=== PATIENT | female | born 1985 | race Caucasian/White ===

== ENCOUNTER 2023-01-15 18:15 | Inpatient (IN) | payer OTHER, SELFPAY ==
[2023-01-15] VITALS (34 sets, daily range): BP systolic 103–149; BP diastolic 56–106; PULSE 71–100; RESP 15–16; TEMP 36.5–36.8; O2SAT 96–100; BMI 34.2
--- NOTE | ~2023-01-15 | US_ITS ---
EXAMINATION: US OB limited DATE: 01/15/2023 20:21 INDICATION: Vaginal bleeding. Third trimester. TECHNIQUE: Real-time ultrasound of the pelvis was performed. COMPARISON: None. FINDINGS: There is a single fetus in transverse lie. The placenta covers the internal cervical os. heart rate is 170 beats per minute (bpm). The amniotic fluid volume is subjectively normal. IMPRESSION: 1. Single living fetus in transverse lie. 2. Placenta previa. Reviewed, dictated and finalized at location A.
--- NOTE | 2023-01-15 18:15 | LDADM ---
This patient, Cynthia Elizalde, was admitted to Labor/Delivery/Recovery 105 on 01/15/23 at 18:15. Plans for labor, pain management and were discussed with patient. Patient/family oriented to hospital policies and general routines including ID bracelet, bed and alarms, visiting hours, pain management, procedures, bathroom and other care routines, personal items, smoking policy, room service/diet and guest tray routines, infant security routines, and visiting hours. Patient/Family are encouraged to report perceived risks to care and to ask questions if they do not understand what they are told or what they should do. See OBIX for further documentation.
--- NOTE | 2023-01-15 18:15 | PC.NURSE ---
Patient arrived to OB unit with complaint of vaginal bleeding. Patient reports that vaginal bleeding started at 1730 and she has expressed a baseball sized clot, which she brought with her to the hospital. Patient still bleeding upon arrival to OB unit. Patient denies contractions/cramping and reports active movement. Patient denies any loss of fluid.
--- NOTE | 2023-01-15 18:33 | PC.NURSE ---
Dr. Goodman returned page. Dr. Goodman updated on patient assessment including vaginal bleeding. Notified of patient passing baseball sized clot prior to arrival and since has a trickle of blood with 2 pea sized clots upon assessment. Notified that patient abdomen palpates soft without pain and movement palpated and noted audibly and per patient. FHT tachy in 170's, moderate variability noted. Notified of patient vital signs. Orders received from Dr. Goodman.
--- NOTE | 2023-01-15 18:39 | PC.NURSE ---
Dr. Goodman called to give additional orders.
[2023-01-15] MEDS: LACTATED RINGERS 1,000 ML 125 ML IV CONT (18:54)
[2023-01-15 19:00] LABS: Basophils Absolute Auto 0.1 K/mm3 (0.0-0.1); Basophils Percent Auto 0.7 % (0.2-1.2); Eosinophils Absolute Auto 0.2 K/mm3 (0-0.3); Eosinophils Percent Auto 1.7 % (0-4.4); Hematocrit 36.8 % (37.0-47.0); Hemoglobin 12.8 g/dL (12.0-15.0); Immature Granulocyte Absolute 0.33 K/mm3 (0.00-0.031); Immature Granulocyte Percent A 2.3 % (0-0.5); Lymphocytes Absolute Auto 2.63 K/mm3 (0.9-3.2); Lymphocytes Percent Auto 18.5 % (18.3-44.2); Mean Corpuscular HGB Conc 34.8 g/dl (32-36); Mean Corpuscular Hemoglobin 31.8 pg (26-34); Mean Corpuscular Volume 91.5 fl (80-100); Mean Platelet Volume 9.9 fl (7.4-10.4); Monocytes Absolute Auto 0.9 K/mm3 (0.1-0.6); Monocytes Percent Auto 6.5 % (2.6-8.5); Neutrophils Percent Auto 70.3 % (45.5-73.1); Platelet Count Result 255 k/mm3 (150-375); Red Blood Count 4.02 M/mm3 (4.2-5.4); White Blood Count 14.2 K/mm3 (4.5-10.0)
[2023-01-15 19:09] LABS: INR 0.9; Prothrombin Time 12.9 Seconds (11.1-14.7)
[2023-01-15 19:10] LABS: Fibrinogen 529 mg/dl (215-510); Partial Thromboplastin Time 25.3 SECONDS (22.3-36.8)
--- NOTE | 2023-01-15 19:10 | PC.NURSE ---
Called Ultrasound to inquire of ETA for bedside ultrasound.
[2023-01-15 19:13] LABS: Alanine Aminotransferase 40 U/L (6-35); Albumin Level 3.8 g/dL (3.5-5.1); Alkaline Phosphatase 131 U/L (38-126); Anion Gap 7 mmol/L (8-16); Aspartate Amino Transferase 44 U/L (14-36); Bilirubin,Total 0.6 mg/dL (0.2-1.3); Blood Urea Nitrogen 9 mg/dL (7-17); Calcium 9.2 mg/dL (8.4-10.2); Carbon Dioxide 22 mmol/L (22-30); Chloride 106 mmol/L (98-107); Estimated CRCL calculation 143 ml/min; Estimated Glomerular Filt Rate > 60; Glucose 85 mg/dL (65-110); Potassium 3.9 mmol/L (3.4-5.0); Sodium 135 mmol/L (137-145); Uric Acid 3.7 mg/dL (2.5-7.5)
--- NOTE | 2023-01-15 20:05 | PC.NURSE ---
Notified Dr. Goodman that nuclear medicine tech states she is having difficulty fully visualizing placenta r/t position during ultrasound. household appliances service technician states that placenta is low lying and potentially previa, clarified if Dr. Goodman wanted her to attempt an vaginal ultrasound. Dr. Goodman states he would not like a vaginal ultrasound to be performed. Dr. Goodman notified of all lab results at this time. Order received from Dr. Goodman.
--- NOTE | 2023-01-15 20:10 | PC.NURSE ---
Patient updated on plan of care and new orders. Medication education provided. Patient states understanding of new plan of care and orders and denies questions.
--- NOTE | 2023-01-15 20:35 | PC.NURSE ---
Plan of care discussed with patient, patient medication eduction provided prior to starting IV fluids. Patient educated on labs drawn. Patient questions answered.
[2023-01-15] MEDS: DEXTROSE 5%/0.45% SOD CHL 1,000 ML 125 ML IV CONT (20:36)
[2023-01-15] MEDS: BETAMETHASONE SOD PHOS/ACETATE 30 MG/5 ML VIAL 12 MG IM (20:38)
[2023-01-16] VITALS (11 sets, daily range): BP systolic 99–126; BP diastolic 51–78; PULSE 72–86; RESP 15–18; TEMP 36.6–37.1; O2SAT 98–99
[2023-01-16] MEDS: DEXTROSE 5%/0.45% SOD CHL 1,000 ML 125 ML IV CONT (04:46)
--- NOTE | 2023-01-16 06:55 | PM.IMHP ---
H&P: HPI History of Present Illness Date/Time: 01/16/23 06:55 Chief Complaint: bleeding Narrative: this is a 37 year 2 para 0010 whose last menstrual period was 822 22, EDC is 02/13 3 presents at 36 weeks gestation bleeding. She has a history of a low-lying placenta. The placenta appeared to be resolved from low. However ultrasound shows the placenta is at the cervical os. Bleeding has since slowed. She has received dose steroids. She is being monitored closely the has been uncomplicated otherwise. [facility] Family History Family History Grandparent Lung cancer Grandparent Heart disease Social History Social History Smoking status: Former smoker Substance use: never Lack of Transportation: No Lack of Food: Never True Current Housing: I Have Housing Concerned About Future Housing: No Difficulty Paying Gas/Electric Bills: No Difficulty Paying for Meds: No Currently Unemployed: No Education: Bachelor's Degree Difficulty w/ Childcare or Family Care: No Spiritual care concerns: No Meds Home Medications and Allergies Home Medications Medication Instructions Recorded Confirmed Type prenat.vits,travis,zsa-droj-gxsdd 1 tablet PO DAILY 01/13/23 01/15/23 History cephalexin 500 mg capsule 500 mg PO BID 01/15/23 01/15/23 History cholecalciferol (vitamin D3) 1,250 1,000 unit PO DAILY 01/15/23 01/15/23 History mcg (50,000 unit) capsule Allergies Allergy/AdvReac Type Severity Reaction Status Date / Time No Known Allergies Allergy Verified 01/15/23 18:58 Vital Signs Vital Signs - 24 hr 01/15/23 18:31 01/15/23 18:32 01/15/23 18:37 Temperature 97.7 F Pulse Rate 94 Respiratory Rate 16 Blood Pressure 149/87 H Pulse Oximetry 100 98 Oxygen Delivery 01/15/23 18:42 01/15/23 18:46 01/15/23 18:47 Temperature Pulse Rate 91 Respiratory Rate Blood Pressure 130/90 Pulse Oximetry 98 98 Oxygen Delivery 01/15/23 18:52 01/15/23 18:57 01/15/23 19:01 Temperature Pulse Rate 86 Respiratory Rate Blood Pressure 127/87 Pulse Oximetry 98 99 Oxygen Delivery 01/15/23 19:02 01/15/23 19:07 01/15/23 19:12 Temperature Pulse Rate Respiratory Rate Blood Pressure Pulse Oximetry 97 99 96 Oxygen Delivery 01/15/23 19:16 01/15/23 19:17 01/15/23 19:22 Temperature Pulse Rate 99 Respiratory Rate Blood Pressure 106/84 Pulse Oximetry 98 97 Oxygen Delivery 01/15/23 19:27 01/15/23 19:31 01/15/23 19:32 Temperature Pulse Rate 78 Respiratory Rate Blood Pressure 122/82 Pulse Oximetry 97 99 Oxygen Delivery 01/15/23 19:37 01/15/23 19:42 01/15/23 19:47 Temperature Pulse Rate Respiratory Rate Blood Pressure Pulse Oximetry 98 98 99 Oxygen Delivery 01/15/23 19:52 01/15/23 19:57 01/15/23 20:01 Temperature Pulse Rate 85 Respiratory Rate Blood Pressure 124/85 Pulse Oximetry 99 100 Oxygen Delivery 01/15/23 20:02 01/15/23 20:07 01/15/23 20:12 Temperature Pulse Rate Respiratory Rate Blood Pressure Pulse Oximetry 100 99 100 Oxygen Delivery 01/15/23 20:14 01/15/23 20:28 01/15/23 20:43 Temperature Pulse Rate 100 82 Respiratory Rate Blood Pressure 142/106 H 125/83 Pulse Oximetry 100 Oxygen Delivery 01/15/23 21:01 01/15/23 21:00 01/15/23 23:01 Temperature 97.8 F Pulse Rate 79 71 Respiratory Rate 15 Blood Pressure 119/73 103/56 L Pulse Oximetry Oxygen Delivery 01/15/23 23:00 01/16/23 00:00 01/16/23 01:01 Temperature 98.3 F Pulse Rate 81 Respiratory Rate 15 17 Blood Pressure 99/55 L Pulse Oximetry Oxygen Delivery 01/16/23 05:00 01/16/23 04:00 01/16/23 01:53 Temperature 98.1 F 98.6 F Pulse Rate Respiratory Rate 16 17 15 Blood Pressure Pulse Ox
[2023-01-16] MEDS: RHO(D) IMMUNE GLOBULIN 300 MCG/2 ML SYRINGE IM (08:42)
[2023-01-16 10:05] LABS: Rapid Plasma Reagin Non-Reactive (NonReactive)
--- NOTE | 2023-01-16 18:16 | PC.NURSE ---
Patient eating dinner. Reviewed plan of care for the night, no questions or concerns currently. Reviewed with patient when to call out to nurses station throughout the night.
--- NOTE | 2023-01-16 18:54 | PC.NURSE ---
Dr. Holly sr Called for an update. Updated on patients pencil eraser sized bleeding for day shift. No new orders.
[2023-01-16] MEDS: CALCIUM CARBONATE (TUMS) 500 MG (200 MG ELEMENTAL) PO (20:05)
[2023-01-16] MEDS: BETAMETHASONE SOD PHOS/ACETATE 30 MG/5 ML VIAL 12 MG IM (20:30)
--- NOTE | 2023-01-16 20:45 | PC.NURSE ---
Removed monitors. Advised patient to call out if she notes any change in vaginal bleeding, change in movement, gush of fluid. RN emphasizes importance of rest at this time. Pt verbalizes understanding.
[2023-01-17 03:13] VITALS: BP 108/60; PULSE 87
[2023-01-17 03:14] VITALS: BP 108/60; PULSE 87; RESP 16; TEMP 36.8
--- NOTE | 2023-01-17 03:15 | PC.NURSE ---
Pt noted small amount of brown blood noted on toilet paper when wiping after voiding. Pt approximated 1tsp of brown blood. RN advised patient to call out if any change in bleeding occurs. Pt verbalizes understanding and is resting in bed and has no other concerns at this point in time.
--- NOTE | 2023-01-17 06:37 | PM.OBPNVD ---
OB - PN: Subj Subjective Date/time seen: 01/17/23 06:37 Interval history: no complaints. No further bleeding OB - PN: Obj Data Labs 01/15/23 18:54 01/15/23 18:54 Labs: Laboratory Results - last 24 hr 01/15/23 01/16/23 18:54 07:11 RPR Non-reactive Blood Type O Negative Antibody Screen Negative Screen Not Reportable Baby's Blood Type Not Reportable Baby's VINNY Not Reportable Doses of RhIg Required 1 OB - PN A/P Plan Comments: no further bleeding 0 proceed with next week Time Spent With Patient Time: Total time spent is greater than 50% in coordination of care (as documented) at patient's floor/unit and/or counseling patient: Time with patient: less than 15 minutes Exam Const: General: cooperative, healthy appearing and comfortable Nutritional Appearance: average body habitus Orientation/consciousness: oriented to person, oriented to place and oriented to time
--- NOTE | 2023-01-17 06:38 | PM.DS ---
DS: Admitting Diagnosis Discharge Date 01/17/2023 Admitting Diagnosis vaginal bleeding at 36 weeks DS: Discharge Diagnosis Discharge Diagnosis (1) Placenta previa: Code(s): O44.00 - Complete placenta previa NOS or without hemorrhage, unspecified trimester Status: Acute (2) 36 weeks gestation of : Code(s): Z3A.36 - 36 weeks gestation of Status: Acute DS: Summary Hospital Course Reason for hospitalization: patient was admitted with vaginal bleeding Hospital Course: patient was observed over 36hours. She received 2 doses of steroids. Ultrasound showed a placenta previa or at least low lying placenta. She had 24hours of no bleeding was discharged home with a plan to do a 7 days. Time Spent with Patient Time attestation: Total time spent providing and/or coordinating discharge services: Exam Const: General: cooperative, healthy appearing and comfortable Nutritional Appearance: average body habitus Orientation/consciousness: oriented to person, oriented to place and oriented to time Resp: Effort & Inspection: normal respiratory effort Cardio: Rate: regular rate Rhythm: regular rhythm Heart sounds: S1 normal heart sound present and S2 normal heart sound present GI: Inspection: normal to inspection DS: Data Data Completed and Pending Labs on day of discharge: Labs from last 24 hours 01/16/23 01/15/23 07:11 18:54 RPR Non-reactive Blood Type O Negative Antibody Screen Negative Screen Not Reportable Baby's Blood Type Not Reportable Baby's VINNY Not Reportable Doses of RhIg Required 1 Discharge Plan Discharge Attending physician on discharge: Remington Galvan Discharging Clinician: Remington Galvan Patient Disposition: Home, Self-Care Activity: no straining and pelvic rest Diet: heart healthy Patient Instructions: Antibiotic Form Stand Alone Forms: General Discharge Information Follow-up/Referrals: Remington Galvan MD [Physician] - Discharge Medications: Continued #2 Tablet 1 tablet PO DAILY cephalexin 500 mg capsule 500 mg PO BID cholecalciferol (vitamin D3) 1,250 mcg (50,000 unit) capsule 1,000 unit PO DAILY Date of admission: 01/15/23 18:15 Primary Care Provider: PHYSICIAN,[employer] Admitting Provider: Remington Galvan Attending physician on admission: Remington Galvan Condition: Stable
== END 2023-01-17 07:12 | disposition home or self-care (01) | DRG 833 ==
LOC: ANHLDR 18:56 → ANHOBPP 20:19
PROVIDERS: Admitting Provider Obstetrics & Gynecology; Visit Provider Obstetrics & Gynecology
DX: O44.13 Complete placenta previa with hemorrhage, third trimester (principal); O44.53 Low lying placenta with hemorrhage, third trimester; Z3A.36 36 weeks gestation of pregnancy
CPT/HCPCS: 36415; 59025; 76815; 80053; 84550; 85025; 85384; 85461; 85610; 85730; 86592; 86850; 86900; 86901; 90384; A9270; J0702; J2790; J7120

== ENCOUNTER 2023-01-18 11:27 | Outpatient (RCR) | payer OTHER, SELFPAY ==
[2023-01-18 12:13] VITALS: BP 141/80; PULSE 71
== END 2023-04-18 23:59 | disposition home or self-care (01) ==
LOC: ANHOBOP 11:27
PROVIDERS: Visit Provider Obstetrics & Gynecology
DX: O36.8130 Decreased fetal movements, third trimester, not applicable or unspecified (principal); Z3A.36 36 weeks gestation of pregnancy
CPT/HCPCS: 59025

== ENCOUNTER 2023-01-23 08:51 | Outpatient (CLI) | payer OTHER, SELFPAY ==
[2023-01-23 09:47] LABS: Hematocrit 38.6 % (37.0-47.0); Mean Corpuscular HGB Conc 33.7 g/dl (32-36); Mean Corpuscular Hemoglobin 31.2 pg (26-34); Mean Corpuscular Volume 92.6 fl (80-100); Mean Platelet Volume 10.3 fl (7.4-10.4); Platelet Count Result 294 k/mm3 (150-375); Red Blood Count 4.17 M/mm3 (4.2-5.4)
--- NOTE | 2023-01-23 11:43 | PM.IMHP ---
H&P: HPI History of Present Illness Date/Time: 01/23/23 11:43 Chief Complaint: Term with previa Narrative: this is a 37 year female 37 weeks gestation previa who has had bleeding. She has had good growth and received a dose of steroids last week. She has appears to be previa undergo section [facility] Family History Family History Grandparent Lung cancer Grandparent Heart disease Social History Social History Smoking status: Former smoker Substance use: never Lack of Transportation: No Lack of Food: Never True Current Housing: I Have Housing Concerned About Future Housing: No Difficulty Paying Gas/Electric Bills: No Difficulty Paying for Meds: No Currently Unemployed: No Education: Bachelor's Degree Difficulty w/ Childcare or Family Care: No Spiritual care concerns: No Meds Home Medications and Allergies Home Medications Medication Instructions Recorded Confirmed Type prenat.vits,travis,ouh-ecwd-ybasn 1 tablet PO DAILY 01/13/23 01/15/23 History cephalexin 500 mg capsule 500 mg PO BID 01/15/23 01/15/23 History cholecalciferol (vitamin D3) 1,250 1,000 unit PO DAILY 01/15/23 01/15/23 History mcg (50,000 unit) capsule Allergies Allergy/AdvReac Type Severity Reaction Status Date / Time No Known Allergies Allergy Verified 01/15/23 18:58 Exam Const: General: cooperative, healthy appearing, comfortable and well groomed Nutritional Appearance: average body habitus Orientation/consciousness: oriented to person, oriented to place and oriented to time Resp: Effort & Inspection: normal respiratory effort Cardio: Rate: regular rate Rhythm: regular rhythm Heart sounds: S1 normal heart sound present and S2 normal heart sound present GI: Inspection: normal to inspection ( gravid soft uterus) H&P: Results Labs Labs: Short CBC 01/23/23 Range/Units 09:06 WBC 14.0 H (4.5-10.0) K/mm3 Hgb 13.0 (12.0-15.0) g/dL Hct 38.6 (37.0-47.0) % Plt Count 294 (150-375) k/mm3 Assessment and Plan Assessment and plan (1) Placenta previa: Code(s): O44.00 - Complete placenta previa NOS or without hemorrhage, unspecified trimester Status: Acute (2) Term : Code(s): Z34.90 - Encounter for supervision of normal , unspecified, unspecified trimester Status: Acute Plan primary low-transverse section
[2023-01-24 12:11] LABS: Rapid Plasma Reagin Non-Reactive (NonReactive)
== END 2023-01-23 08:52 | disposition home or self-care (01) ==
LOC: ANHLAB 08:54
PROVIDERS: Visit Provider Obstetrics & Gynecology
DX: Z34.93 Encounter for supervision of normal pregnancy, unspecified, third trimester (principal); Z3A.00 Weeks of gestation of pregnancy not specified
CPT/HCPCS: 36415; 85027; 86592; 86850; 86880; 86900; 86901; 86902

== ENCOUNTER 2023-01-24 05:24 | Inpatient (IN) | payer OTHER, SELFPAY ==
--- NOTE | 2023-01-23 11:46 | HP_ITS ---
This report was moved to the correct visit on 01/27/2023. Original report was signed by Remington Galvan MD on 01/23/23 1146. H&P: HPI History of Present Illness Date/Time: 01/23/23 11:43 Chief Complaint: Term with previa Narrative: this is a 37 year female 37 weeks gestation previa who has had bleeding. She has had good growth and received a dose of steroids last week. She has appears to be previa undergo section [facility] Family History Family History Grandparent Lung cancer Grandparent Heart disease Social History Social History Smoking status: Former smoker Substance use: never Lack of Transportation: No Lack of Food: Never True Current Housing: I Have Housing Concerned About Future Housing: No Difficulty Paying Gas/Electric Bills: No Difficulty Paying for Meds: No Currently Unemployed: No Education: Bachelor's Degree Difficulty w/ Childcare or Family Care: No Spiritual care concerns: No Meds Home Medications and Allergies Home Medications Medication Instructions Recorded Confirmed Type prenat.vits,travis,pun-asbc-afqao 1 tablet PO DAILY 01/13/23 01/15/23 History cephalexin 500 mg capsule 500 mg PO BID 01/15/23 01/15/23 History cholecalciferol (vitamin D3) 1,250 1,000 unit PO DAILY 01/15/23 01/15/23 History mcg (50,000 unit) capsule Allergies Allergy/AdvReac Type Severity Reaction Status Date / Time No Known Allergies Allergy Verified 01/15/23 18:58 Exam Const: General: cooperative, healthy appearing, comfortable and well groomed Nutritional Appearance: average body habitus Orientation/consciousness: oriented to person, oriented to place and oriented to time Resp: Effort & Inspection: normal respiratory effort Cardio: Rate: regular rate Rhythm: regular rhythm Heart sounds: S1 normal heart sound present and S2 normal heart sound present GI: Inspection: normal to inspection ( gravid soft uterus) H&P: Results Labs Labs: Short CBC 01/23/23 Range/Units 09:06 WBC 14.0 H (4.5-10.0) K/mm3 Hgb 13.0 (12.0-15.0) g/dL Hct 38.6 (37.0-47.0) % Plt Count 294 (150-375) k/mm3 Assessment and Plan Assessment and plan (1) Placenta previa: Code(s): O44.00 - Complete placenta previa NOS or without hemorrhage, unspecified trimester Status: Acute (2) Term : Code(s): Z34.90 - Encounter for supervision of normal , unspecified, unspecified trimester Status: Acute Plan primary low-transverse section This report may have been done utilizing a voice recognition system. Attempts have been made to correct errors. However, there may be uncorrected grammatical, spelling, and recognition errors present. Report Initialized date/time: Remington Galvan MD 01/23/23 / 1146 Electronically signed by: Remington Galvan MD 01/23/[address] [facility] [place]
[2023-01-24] VITALS (49 sets, daily range): BP systolic 91–120; BP diastolic 62–92; PULSE 64–137; RESP 14–20; TEMP 36.6–37.2; O2SAT 95–100; BMI 33.5
[2023-01-24] MEDS: LACTATED RINGERS 1,000 ML 125 ML IV CONT (06:27)
--- NOTE | 2023-01-24 07:03 | P.PNAN_ITS ---
Anes - Initial Pre Proc Eval Procedure: Operation Date: 01/24/23 07:30 Proposed Procedures p Primary Section - Remington Lr MD Date/Time: 01/24/23 07:03 Surgeon: Remington Lr MD Pre Op Diagnosis: C/S, Breech Patient Data Age: 37 Gender: F Height: 1.75 m Weight: 103 kg Last Vital Signs O2 Del Method Room Air 01/24/23 06:35 Allergies Allergy/AdvReac Type Severity Reaction Status Date / Time No Known Allergies Allergy Verified 01/15/23 18:58 Home Medications Medication Instructions Recorded Confirmed Type prenat.vits,travis,oof-cavo-dzxdu 1 tablet PO DAILY 01/13/23 01/24/23 History cholecalciferol (vitamin D3) 1,250 1,000 unit PO DAILY 01/15/23 01/24/23 History mcg (50,000 unit) capsule Patient hx anesthesia problems: none Family hx anesthesia problems: none Results Review: All pre-operative results and documents have been reviewed as part of the pre- operative evaluation. [facility] Past Medical History Medical History (Updated 01/24/23 @ 07:04 by Les White MD) 36 weeks gestation of Obesity Placenta previa Family History Family History Grandparent Lung cancer Grandparent Heart disease Social History Social History Smoking status: Never smoker Substance use: never Lack of Transportation: No Lack of Food: Never True Current Housing: I Have Housing Concerned About Future Housing: No Difficulty Paying Gas/Electric Bills: No Difficulty Paying for Meds: No Currently Unemployed: No Education: Bachelor's Degree Difficulty w/ Childcare or Family Care: No Spiritual care concerns: No Anes - Eval Final PreProcedure Day of Procedure 01/24/23 07:03 Patient weight: obese Heart: regular rate and rhythm Lungs: clear to auscultation and normal air movement Airway: Mallampati scale class II Neurological: alert and oriented Last oral intake: >/= 8 hours ASA classification: III Emergent: no Anesthetic plan: proceed Anesthesia type and monitoring: regional spinal Results Review: All pre-operative results and documents have been reviewed as part of the pre- operative evaluation. Informed Consent: The patient's anesthetic plan and its attendant risks and benefits were discussed with the patient/family/POA. Questions were solicited and answers provided to the satisfaction of the patient/family/POA.
--- NOTE | 2023-01-24 07:14 | WPDHPUPDATE1 ---
History and Physical Update Update Date/Time: 01/24/23 07:14 History and Physical has been reviewed, including an updated exam of the patient. There are NO changes in the patient's condition. Risks, benefits, and alternatives have been discussed and questions answered. Patient agrees to proceed with procedure.
--- NOTE | 2023-01-24 08:14 | W.PM.PROC2 ---
Procedure Note - Detailed Date of Procedure 01/24/23 Pre-op Diagnosis C/S, Breech Post-op Diagnosis Same Procedure Performed Low-transverse section Surgeon Remington Lr MD Anesthesia Spinal Indications this is a 37-year-old 2 para 0 at 37 weeks with known previa Findings viable female . Placenta previa Description of Procedure the patient was prepped draped in the normal sterile fashion placed in the supine position. Under excellent spinal anesthetic the abdomen was entered in Pfannenstiel fashion progressive layers of fascia. Fascia incised midline carried in upward outward fashion bilaterally. Underlying muscles sharply dissected. Parietal peritoneum elevated by Karlene clamps and by sharp dissection. This carried superiorly and inferiorly down the bladder. Bladder blade placed. Bladder flap formed. Bladder blade returned. Low transverse incision made the head delivered in BENJA position. Nuchal cord checked noted be loose x1 rebound occiput. Anterior posterior shoulder delivered spontaneously cut. Cord clamped x2 and cut infant passed off the table with an excellent cry. Placenta delivered intact manually after drawing blood. After assuring no membranes or debris remained in the uterus, the uterus was closed with continuous running locking 0 Vicryl. This was followed by 2nd running locking 0 Vicryl imbricating layer. Hemostasis was assured. Ovaries and tubes appeared within normal limits. The uterus returned the abdomen. The hysterotomy incision inspected 1 last time noted be hemostatic. Laps removed and accounted for. Hematoma was placed over the raw surface area of the hysterotomy incision. The fascia closed with continuous running 0 Vicryl from lateral edge to midline bilaterally. Irrigation of subcutaneous layer and skin closed with 4 Monocryl and glue. Blood by QBL was 600cc. All sponge, needle, instrument counts were correct. There were no immediate complications noted Estimated Blood Loss 600 Drains No Packing No Pathology None sent Complications No immediate complications Condition Stable Disposition PACU
--- NOTE | 2023-01-24 10:43 | OBPPTRN ---
Patient transferred to post room #286 via stretcher. Support person present. Oriented to unit, room, information board, rooming in, admission packet and security measures. Patient verbalizes understanding.
[2023-01-24] MEDS: KETOROLAC 30 MG/ML VIAL (*BKC) IV PUSH ×2 (11:27→23:48)
[2023-01-24] MEDS: DEXTROSE 5%/0.45% SOD CHL 1,000 ML 125 ML IV CONT (12:28)
--- NOTE | 2023-01-24 13:20 | PM.DS ---
DS: Admitting Diagnosis Discharge Date 01/26/23 Admitting Diagnosis term /placenta previa DS: Discharge Diagnosis Discharge Diagnosis (1) Placenta previa: Code(s): O44.00 - Complete placenta previa NOS or without hemorrhage, unspecified trimester Status: Acute (2) Term : Code(s): Z34.90 - Encounter for supervision of normal , unspecified, unspecified trimester Status: Acute DS: Summary Hospital Course Reason for hospitalization: patient was admitted for primary section secondary to previa Hospital Course: patient unremarkable section 01/24/2023. Her hospital course. She remained afebrile. She was up, voiding Without difficulty. she was generally without complaints Time Spent with Patient Time attestation: Total time spent providing and/or coordinating discharge services: Exam Const: General: cooperative, healthy appearing, comfortable and average body habitus Orientation/consciousness: oriented to person, oriented to place and oriented to time Resp: Effort & Inspection: normal respiratory effort Cardio: Rate: regular rate Rhythm: regular rhythm Heart sounds: S1 normal heart sound present and S2 normal heart sound present GI: Inspection: normal to inspection ( fundus firm below the umbilicus) and incision ( incision dry and intact) Discharge Plan Discharge Attending physician on discharge: Remington Galvan Discharging Clinician: Remington Galvan Patient Disposition: Home, Self-Care Activity: may shower, no straining, may drive after 2 weeks and pelvic rest Diet: heart healthy Wound Care Instructions: follow printed instructions Patient Instructions: Antibiotic Form Stand Alone Forms: General Discharge Information Follow-up/Referrals: Remington Galvan MD [Physician] - Discharge Medications: New hydrocodone-acetaminophen 5-325 mg tablet 1 tablet PO Q4H PRN (Reason: pain) Qty: 30 0RF No Action prenat.vits,travis,tfg-lvox-hauwg Tablet 1 tablet PO DAILY cholecalciferol (vitamin D3) 1,250 mcg (50,000 unit) capsule 1,000 unit PO DAILY Date of admission: 01/24/23 05:24 Primary Care Provider: PHYSICIAN,[employer] Admitting Provider: Remington Galvan Attending physician on admission: Remington Galvan Condition: Stable
--- NOTE | 2023-01-24 14:44 | PC.NURSE ---
[id number] Introductions were made, then consulted with patient to assess needs related to . Mother led the conversation with her?plans to feed?her infant and the?experience so far. Mother has successfully latched her to her left breast using laid-back cross cradle positioning. Reviewed with parents how to watch for and visualize swallowing at the breast. Father of baby assisted to the right breast for recovery C/S mother for an effective latch. Resources provided for inpatient and outpatient services with the feeding sheet, mom/baby guide and name written on the white board. Mother voiced understanding of information and will call if there is a request for assistance. Reported to the primary RN.
[2023-01-24] MEDS: HYDROcodone/acetaminophen (*CRX) 5-325 MG TABLET 1 TAB PO ×2 (15:43→20:11)
[2023-01-24] MEDS: MULTIVIT/MIN/PREN/FOL AC/IRON TABLET 1 TAB PO (15:43)
[2023-01-24] MEDS: DOCUSATE SODIUM 100 MG CAPSULE PO (15:43)
[2023-01-25] MEDS: HYDROcodone/acetaminophen (*CRX) 5-325 MG TABLET 1 TAB PO ×5 (02:53→20:16)
[2023-01-25 03:30] VITALS: BP 105/66; PULSE 72; RESP 18; TEMP 36.5; O2SAT 100
[2023-01-25 04:52] LABS: Basophils Absolute Auto 0.1 K/mm3 (0.0-0.1); Basophils Percent Auto 0.4 % (0.2-1.2); Eosinophils Absolute Auto 0.2 K/mm3 (0-0.3); Hematocrit 33.5 % (37.0-47.0); Hemoglobin 11.5 g/dL (12.0-15.0); Immature Granulocyte Absolute 0.19 K/mm3 (0.00-0.031); Immature Granulocyte Percent A 1.2 % (0-0.5); Lymphocytes Absolute Auto 2.04 K/mm3 (0.9-3.2); Lymphocytes Percent Auto 12.6 % (18.3-44.2); Mean Corpuscular HGB Conc 34.3 g/dl (32-36); Mean Corpuscular Hemoglobin 31.7 pg (26-34); Mean Corpuscular Volume 92.3 fl (80-100); Mean Platelet Volume 10.9 fl (7.4-10.4); Monocytes Absolute Auto 1.4 K/mm3 (0.1-0.6); Monocytes Percent Auto 8.8 % (2.6-8.5); Neutrophils Absolute Auto 12.3 K/mm3 (1.3-6.7); Platelet Count Result 248 k/mm3 (150-375); Red Blood Count 3.63 M/mm3 (4.2-5.4); Red Cell Distribution Width 12.9 % (11.5-14.5); White Blood Count 16.2 K/mm3 (4.5-10.0)
--- NOTE | 2023-01-25 06:08 | P.PNOB_ITS ---
OB - PN: Subj Subjective Date/time seen: 01/25/23 06:08 Patient comments: no complaints and pain well controlled baby status: doing well OB - PN: Obj Data Labs 01/25/23 03:00 Labs: Laboratory Results - last 24 hr 01/25/23 03:00 WBC 16.2 H RBC 3.63 L Hgb 11.5 L Hct 33.5 L MCV 92.3 MCH 31.7 MCHC 34.3 RDW 12.9 Plt Count 248 MPV 10.9 H Immature Gran % (Auto) 1.2 H Neut % (Auto) 76.0 H Lymph % (Auto) 12.6 L [place] % (Auto) 8.8 H Eos % (Auto) 1.0 Baso % (Auto) 0.4 Lymph # (Auto) 2.04 [place] # (Auto) 1.4 H Eos # (Auto) 0.2 Baso # (Auto) 0.1 Abs Immat Gran (auto) 0.19 H Absolute Neuts (auto) 12.3 H Absolute Nucleated RBC 0.0 Nucleated RBC % 0.0 Blood Type O Negative Antibody Screen Positive OB - PN A/P Plan day: 1 Plan: routine care Time Spent With Patient Time: Total time spent is greater than 50% in coordination of care (as documented) at patient's floor/unit and/or counseling patient: Time with patient: less than 15 minutes Exam Const: General: cooperative, healthy appearing, comfortable and well groomed Orientation/consciousness: oriented to person, oriented to place and oriented to time HENMT: Head: normal to inspection Resp: Effort & Inspection: normal respiratory effort Cardio: Rate: regular rate Rhythm: regular rhythm Heart sounds: S1 normal heart sound present and S2 normal heart sound present GI: Inspection: normal to inspection and incision ( Wound is clean dry and intact)
[2023-01-25] MEDS: MULTIVIT/MIN/PREN/FOL AC/IRON TABLET 1 TAB PO (08:02)
[2023-01-25] MEDS: DOCUSATE SODIUM 100 MG CAPSULE PO ×2 (08:02→17:38)
[2023-01-25] MEDS: IBUPROFEN 600 MG TABLET PO ×2 (08:03→15:30)
[2023-01-25 08:50] VITALS: BP 121/77; PULSE 78; RESP 16; TEMP 37.2; O2SAT 100
--- NOTE | 2023-01-25 10:49 | PC.NURSE ---
[id number] Purposefully rounded to assess needs. Parents voiced is going well. Mother led the conversation with positive feedback concerning how is going and we discussed her pumping questions. Mother voiced understanding of services, when, how, and why to call for assistance and states she might call for a latch assessment or to practice a different position.
[2023-01-25] MEDS: RHO(D) IMMUNE GLOBULIN 300 MCG/2 ML SYRINGE IM (12:38)
--- NOTE | 2023-01-25 14:26 | WPDANLDPN2 ---
Anes-Prog Note L&D Date/Time: 01/25/23 14:26 Comfortable throughout: section Neuraxial method: spinal Epidural/Spinal procedure site: clean & non-tender Neuro status: Neuro function grossly intact. Cardiovascular status: normal Respiratory status: normal Airway patency: baseline Mental status: baseline Post-Op hydration status: normal Vital Signs: Last Vital Signs Temp 99 F 01/25/23 08:50 Pulse 78 01/25/23 08:50 Resp 16 01/25/23 08:50 BP 121/77 01/25/23 08:50 Pulse Ox 100 01/25/23 08:50 O2 Del Method Room Air 01/25/23 08:00 Pain score (VAS): 0/10 I/O: Intake & Output 01/24/23 01/25/23 01/25/23 23:59 07:59 15:59 Intake Total 1999 Output Total 2049 2745 Balance -2049 - Post-procedural complaints: none Patient feedback: Patient satisfied with anesthetic care.
--- NOTE | 2023-01-25 14:26 | WPDANLDNPN2 ---
Anes-Prog Note L&D-Neuraxial Date/Time: 01/25/23 14:26 Neuraxial medications: intrathecal PF morphine Opiod-related complaints: none Patient feedback: Patient satisfied with post-operative pain management.
--- NOTE | 2023-01-25 15:28 | PC.NURSE ---
[id number] Consulted with patient to assess needs related to . Mother led conversation with her experience with feeding baby so far. Mother works well with her infant with encouragement. Reviewed working with , supporting breast and how to protect the nipples with an optimal deep latch, good positioning, and good hand washing. Encouraged understanding the benefits of skin to skin, responding to feeding cues, frequencies of feeding 8-12 times in 24 hours (approximately 2-3 hours), duration of feedings, milk production, intake/output feeding sheet and signs of adequate intake encouraging swallowing at the breast. Reviewed positioning and alignment, supporting breast, off-centered (asymmetrical latch) and leading with the chin with big, open, wide gape. Infant latched optimally to the left breast in football position. Education given to mother of how to visualize suck/swallow ratios and listen for drinking at the breast. Infant was able to maintain latch without discomfort to mother. Nipple care reviewed with optimal latch, good positioning and using clean hands when feeding her infant and touching her breast. Resources used to facilitate learning were used from the tool,mom and baby guide. Mother voiced understanding of the education shared, to call for assistance if the does not latch or if there is discomfort with . Reported to the primary RN.
[2023-01-25 20:10] VITALS: BP 137/80; PULSE 76; PULSE 97; RESP 16; TEMP 37.1; O2SAT 100; O2SAT 97
[2023-01-26] MEDS: IBUPROFEN 600 MG TABLET PO ×2 (00:48→08:14)
[2023-01-26] MEDS: HYDROcodone/acetaminophen (*CRX) 5-325 MG TABLET 1 TAB PO ×3 (00:48→08:14)
--- NOTE | 2023-01-26 05:37 | PM.OBPNVD ---
OB - PN: Subj Subjective Date/time seen: 01/26/23 05:37 Patient comments: no complaints and pain well controlled baby status: doing well and nursing well OB - PN: Obj Data Labs 01/25/23 03:00 Labs: Laboratory Results - last 24 hr 01/25/23 03:00 Blood Type O Negative Antibody Screen Positive Antibody Identification Passive Due to RH Imm Glob Antigen Identification TNP VINNY, IgG Interpret Not Performed VINNY, Poly Interpret Negative VINNY, Complement Interp Not Performed Screen Negative Baby's Blood Type O pos Baby's VINNY Negative Doses of RhIg Required 1 OB - PN A/P Plan day: 2 Plan: routine care, discharge home and follow up 6 weeks (4) Time Spent With Patient Time: Total time spent is greater than 50% in coordination of care (as documented) at patient's floor/unit and/or counseling patient: Time with patient: less than 15 minutes Exam Const: General: cooperative, healthy appearing and comfortable Nutritional Appearance: average body habitus Orientation/consciousness: oriented to person, oriented to place and oriented to time HENMT: Head: normal to inspection Resp: Effort & Inspection: normal respiratory effort Cardio: Rate: regular rate Rhythm: regular rhythm Heart sounds: S1 normal heart sound present and S2 normal heart sound present GI: Inspection: normal to inspection and incision (cdi)
[2023-01-26 07:25] VITALS: BP 115/79; PULSE 71; RESP 16; TEMP 37.2; O2SAT 100
[2023-01-26] MEDS: DOCUSATE SODIUM 100 MG CAPSULE PO (08:14)
[2023-01-26] MEDS: MULTIVIT/MIN/PREN/FOL AC/IRON TABLET 1 TAB PO (08:14)
--- NOTE | 2023-01-26 09:30 | PC.NURSE ---
Patient viewed the discharge video Mother & Baby Care, The First Two Weeks . Patient was given the opportunity and encouraged to ask questions. Patient verbalized understanding of information shared and has been given the mother/baby guide for home reference.
--- NOTE | 2023-01-26 16:37 | PC.NURSE ---
[id number] Mother led the conversation with her experience and plan to feed her so far and her ability to independently latch optimally without discomfort. Reminded parents to use good handwashing technique to prevent infection. Mother is feeding appropriately for growth of and understands stimulating to eat if needed. Infant has had appropriate feedings in the last 24 hours meets the outcomes for weight, output and jaundice at this time. Mother states she is confident to continue effectively breastfeed her infant at home, when to call for assistance and denies any additional assistance or education at this time. Reinforced understanding of milk production, transition of milk, signs of adequate intake, transition of stool, prevention/relief of engorgement, responsive watching for feeding cues, the different methods of stimulating infant to breastfeed 2-3 hours after the start of the last feeding, community resources, medication information reviewed per [facility] and when to call a provider using the resource of the mom and baby guide/[facility] website. Mother voiced understanding of the education shared. Reported to the primary RN.
[2023-01-27 10:20] VITALS: BP 117/78; PULSE 69; RESP 18; TEMP 37.1; O2SAT 100
== END 2023-01-26 11:06 | disposition home or self-care (01) | DRG 788 ==
LOC: ANHLDR 07:16 → ANHOB2 10:44
PROVIDERS: Admitting Provider Obstetrics & Gynecology; Visit Provider Obstetrics & Gynecology
PROC: 10D00Z1 Extraction of Products of Conception, Low, Open Approach (ICD-10-PCS; CPT 59514; principal; 2023-01-24 07:30)
DX: O44.13 Complete placenta previa with hemorrhage, third trimester (principal); Z37.0 Single live birth; Z3A.37 37 weeks gestation of pregnancy
CPT/HCPCS: 36415; 85025; 85027; 85461; 86592; 86850; 86880; 86900; 86901; 86902; 90384; A9270; J0131; J1885; J2274; J2405; J2790; J7120